=== PATIENT | male | born 1985 | race Caucasian/White ===

== ENCOUNTER 2019-09-21 09:03 | Emergency (ER) | payer OTHER, SELFPAY ==
--- NOTE | ~2019-09-21 | CT_ITS ---
EXAMINATION: CT chest w con DATE: 09/21/2019 11:21 INDICATION: Chest, epigastric pain TECHNIQUE: Computed tomography (CT) of the chest was performed with 75 cc Omnipaque 350 intravenous c ontrast. Automated exposure control and iterative reconstruction technique were employed. Exam dose: 270.87 mGy-cm total exam DLP. COMPARISON: None FINDINGS: There is discoid atelectasis at the lung bases, most prominent at the base of the lingula a nd the left lower lobe, to a lesser extent the posterior right lung base, right lower lobe. No hilar or mediastinal mass lesion or lymphadenopathy. Normal size and homogeneous enhancement of th e thyroid gland. No thoracic aortic aneurysm or dissection. Normal heart size. No pericardial or pleural effusion. Small sliding hiatal hernia. The adrenal glands appear normal. Included skeletal structures are unremarkable. IMPRESSION: Bibasilar discoid atelectasis, left greater than right Small sliding hiatal hernia Reviewed, dictated and finalized at [facility]. Reviewed, dictated and finalized at location [facility].
[2019-09-21 09:09] VITALS: BP 123/74; PULSE 94; RESP 18; TEMP 36.9; O2SAT 99
--- NOTE | 2019-09-21 09:56 | ED.GENADULT ---
HPI - General Adult General Chief complaint: Unspecified Stated complaint: Esophagus swelling Time Seen by Provider: 09/21/19 09:40 History of Present Illness HPI narrative: Patient presents with his mother for epigastric pain for a week. He was seen 4 days ago and his primary care physician's office and had a chest x-ray, which was normal. He was started on omeprazole which he started yesterday. He previously had some improvement with Tums. He slept the last 2 nights in the recliner. Only once that he takes some acid in the back of his throat. It hurts so bad to swallow that he has been avoiding everything except water. He tried some ice cream at that even hurt. Although the pain is consistent it is worse with swallowing. He given an 8 out of 10. He is generally healthy has not been sick recently. Surgical history includes circumcision and wisdom tooth extraction. Does not smoke cigarettes, drink alcohol, or do drugs. He works in environmental cleaning. Related Data Allergies Allergy/AdvReac Type Severity Reaction Status Date / Time No Known Allergies Allergy Verified 09/21/19 09:13 Review of Systems Review of Systems: Narrative: CONSTITUTIONAL: Denies fever, chills, or sweats. EYES: Denies visual changes, redness, or discharge. ENT: Denies rhinorrhea, congestion, sore throat, or otalgia. CARDIOVASCULAR: Epigastric chest pain, but not palpitations, or edema. RESPIRATORY: Denies cough or dyspnea. GASTROINTESTINAL: Denies abdominal pain, nausea, vomiting, or diarrhea. GENITOURINARY: Denies dysuria or hematuria. SKIN: Denies rash or itching. MUSCULOSKELETAL: Denies back pain, joint pain, or myalgia. NEUROLOGIC: Denies headache, numbness, or weakness. PSYCHIATRIC: Denies anxiety or depression. PMFSH Surgical History Surgical History (Updated 09/21/19 @ 09:59 by Karyna Peraza MD) History of circumcision History of wisdom tooth extraction Social History Social History (Updated 09/21/19 @ 09:59 by Karyna Peraza MD) Smoking status: Never smoker Alcohol intake: former Substance use: never Exam Narrative: Exam Narrative: GENERAL: Well-appearing, well-nourished, and in no acute distress. HEAD: Normocephalic, atraumatic. EYES: PERRLA and EOMI. ENT: Nares clear, no rhinorrhea or epistaxis. Mucous membranes moist. NECK: Supple. CHEST: Clear to auscultation. No respiratory distress. HEART: Regular rate and rhythm. No murmur heard. Normal peripheral pulses. ABDOMEN: Soft, nontender, nondistended, normal active bowel sounds. EXTREMITIES: Normal range of motion. No edema. SKIN: Warm, dry, no rash. NEURO: No focal deficits. Alert and oriented x3. PSYCH: Normal mood and affect. Course Reevaluation(s) Reevaluation #1: Patient's pain only improved slightly with a GI cocktail from an 8 out of 10 to 6 out of 10. I am going to order a CAT scan of the chest with contrast to be sure that there is no perforation, active bleeding, or mass. Date: 09/21/19 Time: 10:51 Reevaluation #2: Went in to share the CAT scan results with the patient and the mom. I explained about hiatal hernia. Again he asked what he supposed to do about pain. I offered some pain pills. Date: 09/21/19 Time: 12:21 Vital Signs Vital signs: Vital Signs Temperature 98.5 F 09/21/19 09:09 Pulse Rate 94 09/21/19 09:09 Respiratory Rate 18 09/21/19 09:09 Blood Pressure 123/74 09/21/19 09:09 Pulse Oximetry 99 09/21/19 09:09 Temperature 98.5 F 09/21/19 09:09 Pulse Rate 94 09/21/19 09:09 Respiratory Rate 18 09/21/19 09:09 Blood Pressure 123/74 09/21/19 09:09 Pulse Oximetry 99 09/21/19 09:09 Medical Decision Making Vital Signs Vital Signs: Vital Signs Temperature 98.5 F 09/21/19 09:09 Pulse Rate 94 09/21/19 09:09 Respiratory Rate 18 09/21/19 09:09 Blood Pressure 123/74 09/21/19 09:09 Pulse Oximetry 99 09/21/19 09:09 Temperature 98.5 F 09/21/19 09:09 Pulse Rate 94 09/21/19 09:09 Re
[2019-09-21] MEDS: BELLADONNA ALK/PHENOB ELIX 10 ML, MAG HYDROX/ALUMINUM HYD/SIMETH 30 ML, LIDOCAINE HCL 2... PO (10:06)
[2019-09-21] MEDS: FAMOTIDINE 20 MG TABLET PO (10:07)
[2019-09-21 10:43] LABS: Lipase 42 U/L (23-300)
[2019-09-21 10:46] LABS: Alanine Aminotransferase 40 U/L (4-50); Albumin Level 4.4 g/dL (3.5-5.1); Alkaline Phosphatase 68 U/L (38-126); Aspartate Amino Transferase 26 U/L (17-59); Bilirubin,Total 0.8 mg/dL (0.2-1.3); Blood Urea Nitrogen 12 mg/dL (9-20); Calcium 9.1 mg/dL (8.4-10.2); Carbon Dioxide 28 mmol/L (22-30); Chloride 99 mmol/L (98-107); Estimated CRCL calculation 125 ml/min; Estimated Glomerular Filt Rate > 60; Glucose 99 mg/dL (75-110); Potassium 3.9 mmol/L (3.4-5.0); Sodium 141 mmol/L (137-145)
[2019-09-21 10:56] LABS: Troponin I < 0.012 ng/mL (0.000-0.034)
[2019-09-21] MEDS: MORPHINE SULFATE 2 MG/ML INJ IV PUSH (12:22)
[2019-09-21 12:36] VITALS: BP 115/58; PULSE 62; RESP 18; O2SAT 100
== END 2019-09-21 12:38 | disposition home or self-care (01) ==
LOC: ANHED 10:01
PROVIDERS: Emergency Provider Emergency Medicine; PCP Family Medicine
DX: K52.9 Noninfective gastroenteritis and colitis, unspecified (principal); K44.9 Diaphragmatic hernia without obstruction or gangrene
CPT/HCPCS: 36415; 71260; 80053; 83690; 84484; 96374; 99284; A9270; J2270; Q9967

== ENCOUNTER 2019-10-12 03:27 | Outpatient (CLI) | payer OTHER, SELFPAY ==
[2019-10-13 22:33] LABS: SARS-CoV-2 RNA PCR Negative
== END 2019-10-12 03:28 | disposition home or self-care (01) ==
LOC: ANHCOVIDDT 03:28
PROVIDERS: PCP Family Medicine; Visit Provider Internal Medicine Gastroenterology
DX: Z01.812 Encounter for preprocedural laboratory examination (principal); Z11.59 Encounter for screening for other viral diseases
CPT/HCPCS: 87635; C9803; U0003

== ENCOUNTER 2019-10-14 01:51 | Day surgery (SDC) | payer OTHER, SELFPAY ==
[2019-10-05 13:15] VITALS: BMI 29.2
[2019-10-14 10:04] VITALS: BP 115/63; PULSE 78; RESP 16; TEMP 36.8; O2SAT 100
[2019-10-14] MEDS: LACTATED RINGERS 1,000 ML 150 ML IV CONT (10:09)
--- NOTE | 2019-10-14 10:17 | WPDANESEPPF ---
Anes - Initial Pre Proc Eval Procedure: Operation Date: 10/14/19 11:00 Proposed Procedures p Esophagogastroduodenoscopy - Josh Avery MD Date/Time: 10/14/19 10:17 Surgeon: Josh Avery MD Pre Op Diagnosis: Reflux Patient Data Age: 33 Gender: M Height: 6 ft Weight: 96.2 kg Last Vital Signs Temp 98.2 F 10/14/19 10:04 Pulse 78 10/14/19 10:04 Resp 16 10/14/19 10:04 BP 115/63 10/14/19 10:04 Pulse Ox 100 10/14/19 10:04 Allergies Allergy/AdvReac Type Severity Reaction Status Date / Time No Known Allergies Allergy Verified 10/14/19 10:02 Home Medications Medication Instructions Recorded Confirmed Type famotidine [Pepcid] 40 mg PO BID #20 tablet 09/21/19 10/14/19 Rx omeprazole 40 mg capsule,delayed 40 mg PO DAILY 09/25/19 10/14/19 History release Patient hx anesthesia problems: none Family hx anesthesia problems: none PMFSH Past Medical History Medical History (Updated 09/25/19 @ 10:44 by Josh Avery MD) Dysphagia Pleurisy Surgical History Surgical History (Updated 09/21/19 @ 09:59 by Karyna Peraza MD) History of circumcision History of wisdom tooth extraction Social History Social History (Updated 09/21/19 @ 09:59 by Karyna Peraza MD) Smoking status: Never smoker Alcohol intake: former Substance use: never Gender identity (if verbalized by the patient): Male Anes - Eval Final PreProcedure Day of Procedure 10/14/19 10:17 Patient weight: normal Heart: regular rate and rhythm Lungs: clear to auscultation Airway: Mallampati scale class II Neurological: alert and oriented Last oral intake: >/= 8 hours ASA classification: II Emergent: no Anesthetic plan: proceed Anesthesia type and monitoring: general GIVS and standard monitoring Informed Consent: The patient's anesthetic plan and its attendant risks and benefits were discussed with the patient/family/POA. Questions were solicited and answers provided to the satisfaction of the patient/family/POA.
--- NOTE | 2019-10-14 10:59 | WPDHPUPDATE1 ---
History and Physical Update Update Date/Time: 10/14/19 10:59 History and Physical has been reviewed, including an updated exam of the patient. There are NO changes in the patient's condition. Risks, benefits, and alternatives have been discussed and questions answered. Patient agrees to proceed with procedure.
[2019-10-14 11:14] VITALS: BP 99/58; PULSE 67; RESP 17; O2SAT 97
[2019-10-14 11:24] VITALS: BP 99/56; PULSE 66; RESP 18; O2SAT 96
[2019-10-14 11:34] VITALS: BP 100/58; PULSE 63; RESP 19; O2SAT 98
== END 2019-10-14 11:53 | disposition home or self-care (01) ==
PROVIDERS: PCP Family Medicine; Visit Provider Internal Medicine Gastroenterology
PROC: 0DJ08ZZ Inspection of Upper Intestinal Tract, Via Natural or Artificial Opening Endoscopic (ICD-10-PCS; CPT 43235; principal; 2019-10-14 11:00)
DX: K21.0 Gastro-esophageal reflux disease with esophagitis (principal); R13.10 Dysphagia, unspecified; K29.70 Gastritis, unspecified, without bleeding
CPT/HCPCS: 43239; 88305; J2704; J7120

== ENCOUNTER 2021-07-31 16:46 | Outpatient (CLI) | payer OTHER, SELFPAY ==
--- NOTE | ~2021-07-31 | XR_ITS ---
EXAMINATION: XR chest 2V 07/31/2021 17:08 INDICATION: Chest pain PROCEDURE: 2 view chest COMPARISON: No prior studies for comparison. FINDINGS: The lungs are clear. The cardiomediastinal silhouette is within normal limits. There is bl unting of the left lateral costophrenic recess which may represent a small effusion or pleural thicke froy. There is no pneumothorax suspected. IMPRESSION: 1: Blunting left lateral costophrenic recess which may represent effusion or pleural thickening. Reviewed, dictated and finalized at location [facility]. IMPRESSION: 1: Blunting left lateral costophrenic recess which may represent effusion or p leural thickening.
--- NOTE | 2021-07-31 17:06 | ECG_ITS ---
Measurements Intervals [place] Rate: 68 P: 62 WV: 152 QRS: 37 QRSD: 102 T: 17 QT: 377 QTc: 402 Interpretive Statements SINUS RHYTHM NORMAL ECG Electronically Signed On 07-31-2021 20:14:55 CDT by Victorino Salinas D.O.
== END 2021-07-31 16:47 | disposition home or self-care (01) ==
LOC: CHSIMG 16:49
PROVIDERS: PCP Family Medicine; Visit Provider Physician Assistant
DX: R07.89 Other chest pain (principal)
CPT/HCPCS: 71046; 93005

== ENCOUNTER → 2021-08-22 10:45 | Outpatient (CLI) | payer OTHER, SELFPAY ==
--- NOTE | ~2021-08-22 | CT_ITS ---
EXAMINATION: CT diagnostic chest wo con DATE: 08/22/2021 11:04 INDICATION: Abnormal CXR TECHNIQUE: Computed tomography (CT) of the chest was performed without intravenous contrast. Automate d exposure control and iterative reconstruction technique were employed. The dose-length product was 644.22 mGy-cm. COMPARISON: X-ray chest 07/31/2021, CT chest 09/21/2019. FINDINGS: CHEST: Thoracic aorta: No significant dilation or calcification. Lung parenchyma and airways: Left lower lung scar, otherwise the and airwarys are clear. Thoracic inlet, axillae and chest wall: No thyroid or soft tissue mass. No axillary lymphadenopathy. Mediastinum: No mass or lymphadenopathy. Heart and pericardium: Normal heart size. No pericardial effusion. Coronary artery calcifications: . Pleura: No effusion or mass. Upper abdomen: No significant finding. Thoracic bones: No acute osseous finding in the chest. IMPRESSION: No acute thoracic process detected. The radiographic abnormality corresponds with left lower lung sca r. Reviewed, dictated and finalized at location [facility]. IMPRESSION: No acute thoracic process detected. The radiographic abnormality corresponds wi th left lower lung scar.
== END ==
PROVIDERS: PCP Family Medicine; Visit Provider Family Medicine
DX: R93.89 Abnormal findings on diagnostic imaging of other specified body structures (principal)
CPT/HCPCS: 71250

== ENCOUNTER 2024-02-13 15:12 | Emergency (ER) | payer OTHER, SELFPAY ==
--- NOTE | ~2024-02-13 | XR_ITS ---
XR finger 1st LT min 2V Ordering provider: Tom Sandoval DO History: . 1st digit DIP pain, swelling/discoloration - after fall . Comparison: None. FINDINGS: BONES: No acute fracture or dislocation. JOINT SPACES: Normal. SOFT TISSUES: Normal. IMPRESSION: No acute osseous abnormality. Reviewed, dictated and finalized at location A. SALVAGE WORKER
--- NOTE | ~2024-02-13 | XR_ITS ---
XR toe 4th RT min 2V Ordering provider: Tom Sandoval DO History: . 4th digit pain, swelling/discoloration - after fall . Comparison: None. FINDINGS: BONES: Chip fracture at the base of the distal phalanx of the fourth toe. No other fractures seen. JOINT SPACES: Normal. SOFT TISSUES: Normal. IMPRESSION: Chip Fracture at the base of the distal phalanx of the fourth toe. Reviewed, dictated and finalized at location A. O FLOATER
[2024-02-13 15:18] VITALS: BP 144/78; PULSE 104; RESP 18; TEMP 37; O2SAT 99
--- NOTE | 2024-02-13 15:21 | ED.GENADULT ---
HPI - General Adult General Chief complaint: Extremity Injury, Upper Stated complaint: thumb pain History of Present Illness HPI narrative: Stu is a 38M with a PMH of GERD that presented to the ED with pain in his left thumb and right 4th toe after he stubbed them when he fell on the stairs. He tripped on a shoe. No other injuries reported. Related Data Home Medications Medication Instructions Recorded Confirmed No Home Medications 02/13/24 02/13/24 Allergies Allergy/AdvReac Type Severity Reaction Status Date / Time No Known Allergies Allergy Verified 02/13/24 15:23 Review of Systems Review of Systems: All systems reviewed & are unremarkable except as noted in HPI and below PMFSH Past Medical History Medical History Dysphagia Pleurisy Surgical History Surgical History History of circumcision History of wisdom tooth extraction Social History Social History Smoking status: Never smoker Alcohol intake: former Substance use: never Gender identity (if verbalized by the patient): Male Exam Const: General: cooperative, healthy appearing, comfortable, no acute distress, well developed, alert, awake and Physically active Orientation/consciousness: oriented to person, oriented to place and oriented to time HENMT: Head: normal to inspection, normocephalic and atraumatic Ears: hearing grossly normal bilaterally and external ears normal Face/Nose/Sinus: Normal external nose present Eyes: General: appearance normal, both eyes and all related structures Periorbital: periorbital findings normal Sclera: sclerae normal Pupils: Equal, round and reactive pupils present Neck: Neck: normal visual inspection Chest: Chest palpation & inspection: normal inspection of the chest Resp: Effort & Inspection: normal respiratory effort, able to speak in complete sentences and no respiratory distress Cardio: Jugular venous distension: no JVD Skin: General skin exam: normal color and no rashes or lesions noted Neuro: General: oriented to person, oriented to place and oriented to time Cranial nerves: Yes Equal, round and reactive pupils present Extrem: General: normal to inspection Other: Left thumb was swollen and TTP. Right 4th toe was black and blue and swollen and TTP Course Course Emergency Course: Declined pain meds. XR finger 1st LT min 2V Ordering provider: Tom Sandoval DO History: . 1st digit DIP pain, swelling/discoloration - after fall . Comparison: None. FINDINGS: BONES: No acute fracture or dislocation. JOINT SPACES: Normal. SOFT TISSUES: Normal. IMPRESSION: No acute osseous abnormality. XR toe 4th RT min 2V Ordering provider: Tom Sandoval DO History: . 4th digit pain, swelling/discoloration - after fall . Comparison: None. FINDINGS: BONES: Chip fracture at the base of the distal phalanx of the fourth toe. No other fractures seen. JOINT SPACES: Normal. SOFT TISSUES: Normal. IMPRESSION: Chip Fracture at the base of the distal phalanx of the fourth toe. Placed in post op shoe Vital Signs Vital signs: Vital Signs Temperature 98.6 F 02/13/24 15:18 Pulse Rate 104 H 02/13/24 15:18 Respiratory Rate 18 02/13/24 15:18 Blood Pressure 144/78 H 02/13/24 15:18 Pulse Oximetry 99 02/13/24 15:18 Oxygen Delivery Room Air 02/13/24 15:18 Temperature 98.6 F 02/13/24 15:18 Pulse Rate 104 H 02/13/24 15:18 Respiratory Rate 18 02/13/24 15:18 Blood Pressure 144/78 H 02/13/24 15:18 Pulse Oximetry 99 02/13/24 15:18 Oxygen Delivery Room Air 02/13/24 15:18 Medical Decision Making Vital Signs Vital Signs: Vital Signs Temperature 98.6 F 02/13/24 15:18 Pulse Rate 104 H 02/13/24 15:18 Respiratory Rate 18 02/13/24 15:18 Blood Pressure 144/78 H 02/13/24 15:18 Pulse Oximetry 99 02/13/24 15:18 Oxygen Delivery Room Air 02/13/24 15:18 Temperature 98.6 F 02/13/24 15:18 Pulse Rate 104 H 02/13/24 15:18 Respiratory Rate 18 02/13/24 15:18 Blood Pressure 144/78 H 02/13/24 15:18 Pulse Oximetry 99 02/13/24 15:18 Oxygen Delivery Room Air 02/13/24 15:18 Discharge Plan Discharge Clinical Impression: Left thumb sprain, Closed fracture of toe Patient Disposition: Home, Self-Care Condition: Stable Instructions: Toe Fracture (ED) Prescriptions: No Action No Home Medications Follow-up/Referrals: UNKNOWN,DOCTOR [Primary Care Provider] - Stand Alone Forms: Work/School Release IP
[2024-02-13 16:12] VITALS: BP 119/79; PULSE 87; RESP 18; TEMP 37.1; O2SAT 97
== END 2024-02-13 16:18 | disposition home or self-care (01) ==
PROVIDERS: Emergency Provider Family Medicine; PCP Family Medicine
DX: S63.602A Unspecified sprain of left thumb, initial encounter (principal); S92.531A Displaced fracture of distal phalanx of right lesser toe(s), initial encounter for closed fracture; W10.9XXA Fall (on) (from) unspecified stairs and steps, initial encounter
CPT/HCPCS: 73140; 73660; 99284

== ENCOUNTER 2025-01-09 15:11 | Emergency (ER) | payer OTHER, SELFPAY ==
[2025-01-09 15:12] VITALS: BP 140/103; PULSE 104; RESP 16; TEMP 36.6; O2SAT 100
--- NOTE | 2025-01-09 15:42 | ED_ITS ---
HPI - Wound/Laceration General Chief Complaint: Wound/Laceration Stated Complaint: CUT ON LEFT HAND Time Seen by Provider: 01/09/25 15:23 Source: patient Mode of arrival: ambulatory Limitations: no limitations History of Present Illness HPI narrative: This is a 39-year-old male who presents with a laceration to the webbing between the left thumb and index finger non gaping well-approximated with no numbness or tingling has good range of motion currently no bleeding. Onset (ago): hour(s) Extremity Location: Left: hand (Webbing between thumb and index finger laceration) Place: home Patient tetanus UTD: No Context: accidental Related Data Home Medications ?Medication ?Instructions ?Recorded ?Confirmed ?Last Taken ?Type No Home Medications 02/13/24 02/13/24 U nknown History Allergies Allergy/AdvReac Type Severity Reaction Status Date / Time No Known Allergies Allergy Verified 01/09/25 15:14 Review of Systems Review of Systems: All systems reviewed & are unremarkable except as noted in HPI and below PMFSH Past Medical History Medical History Pleurisy Dysphagia Surgical History Surgical History History of wisdom tooth extraction History of circumcision Social History Social History Smoking status: Never smoker Alcohol intake: former Substance use: never Gender identity (if verbalized by the patient): Male Exam Const: General: healthy appearing, no acute distress and alert Limitations: no limitations Skin: Other: 1cm non gaping laceration to the webbing of his left thumb and index finger with no numbness or tingling has strength strong brisk radial pulse on the left no other injuries. Course Course Emergency Course: Medical decision making narrative: The patient was evaluated by myself in the emergency department. History obtained from the patient was an independent historian physical exam performed and witnessed by tech. Patient had Dermabond applied to the laceration patient tolerated procedure well. Tetanus was updated. Repeat assessment doing well on repeat exam with no acute distress Repeat vitals are stable Patient agrees with discussion after shared medical decision-making and agrees with discharge All questions answered to the patient's satisfaction. Vital Signs Vital signs: Vital Signs Temperature 36.6 C 10/25/25 15:12 Pulse Rate 104 H 01/09/25 15:12 Respiratory Rate 16 01/09/25 15:12 Blood Pressure 140/103 H 01/09/25 15:12 Pulse Oximetry 100 01/09/25 15:12 Oxygen Delivery Room Air 01/09/25 15:12 Temperature 36.6 C 01/09/25 15:12 Pulse Rate 104 H 01/09/25 15:12 Respiratory Rate 16 01/09/25 15:12 Blood Pressure 140/103 H 01/09/25 15:12 Pulse Oximetry 100 01/09/25 15:12 Oxygen Delivery Room Air 01/09/25 15:12 Procedures Laceration Laceration 1: Date: 01/09/25 Time: 15:46 Site: upper extremity Side (If applicable): left Size (cm): 1 Description: linear Pre-repair: wound explored, irrigated and irrigated extensively ====== Skin Level ====== Skin layer closed with: dermabond ====== Subcutaneous Layer ====== ====== Muscle Layer ====== ====== Tendon Layer ====== Critical Care Time Critical Care Time Critical Care Time: No Discharge Plan Discharge Clinical Impression: Laceration Patient Disposition: Home Condition: Stable Instructions: Antibiotic Form, Laceration (ED), Skin Adhesive Care (ED) Additional Instructions: Advised follow-up with primary care physician if symptoms persist or worsen. Patient Language: Surinamese Prescriptions: No Action No Home Medications Follow-up/Referrals: Arthur,MD Sebastián [Primary Care Provider, Family Practice] Time of Disposition: 15:47
[2025-01-09] MEDS: TETANUS,DIPHTHERIA,AC PERTUSSIS ADULT 0.5 ML (ADACEL) IM (15:44)
[2025-01-09 16:05] VITALS: BP 135/85; PULSE 95; RESP 16; TEMP 36.6; O2SAT 100
== END 2025-01-09 16:05 | disposition home or self-care (01) ==
LOC: CHSED 15:56
PROVIDERS: Emergency Provider Emergency Medicine; PCP Family Medicine
DX: S61.412A Laceration without foreign body of left hand, initial encounter (principal); Z23 Encounter for immunization; W45.8XXA Other foreign body or object entering through skin, initial encounter
CPT/HCPCS: 12001; 90471; 90715; 99282